=== PATIENT | male | born 1955 | race Hispanic/Latino ===

== ENCOUNTER → 2018-02-16 | Outpatient (CLI) | payer OTHER | END | disposition home or self-care (01) | LOC: RAH 10:25 | PROVIDERS: ATTEND Internal Medicine Gastroenterology | DX: R14.0 Abdominal distension (gaseous) (principal); R10.10 Upper abdominal pain, unspecified | CPT/HCPCS: 78264; A9541 ==

== ENCOUNTER 2018-06-01 05:48 | Day surgery (SDC) | payer OTHER ==
[~2018-06-01] VITALS: Ht 172.7 cm; Wt 90.8 kg
[~2018-06-01 05:48] MED LIST: ASPI-555 PO; ATOR-2 PO; CLOP75TA32 PO; FURO80TA3 PO; HYDR-4068 PO; PANT40TA25 PO; POTA25TA13 PO; SODIUM CHLORIDE 0.9% 1000ML 1,000 ML IV ONE
[2018-06-01 06:15] VITALS: BP 136/77
[2018-06-01] MEDS ORDERED: PROPOFOL 10 MG/ML 20ML VIAL IV ONE (06:15)
[2018-06-01] MEDS ORDERED: LIDOCAINE HCL-MPF 2% 5ML VIAL ONE (06:15)
[2018-06-01 06:58] VITALS: BP 108/69
[2018-06-01 07:05] VITALS: BP 114/69
[2018-06-01 07:10] VITALS: BP 114/69
== END 2018-06-01 07:20 | disposition home or self-care (01) ==
LOC: ENDO 05:48 → DAH 05:48 → ENDO 07:20
PROVIDERS: ATTEND Internal Medicine Gastroenterology
DX: K29.50 Unspecified chronic gastritis without bleeding (principal); E78.00 Pure hypercholesterolemia, unspecified; F41.9 Anxiety disorder, unspecified; M19.90 Unspecified osteoarthritis, unspecified site; Z86.010 Personal history of colon polyps; I25.10 Atherosclerotic heart disease of native coronary artery without angina pectoris; Z95.1 Presence of aortocoronary bypass graft; Z98.890 Other specified postprocedural states; Z68.32 Body mass index [BMI] 32.0-32.9, adult; Z79.899 Other long term (current) drug therapy; Z88.8 Allergy status to other drugs, medicaments and biological substances; K21.0 Gastro-esophageal reflux disease with esophagitis; B19.20 Unspecified viral hepatitis C without hepatic coma; K76.0 Fatty (change of) liver, not elsewhere classified; E78.5 Hyperlipidemia, unspecified; I45.10 Unspecified right bundle-branch block
CPT/HCPCS: 43239; 88305; 93005; J2704; J3490; J7030

== ENCOUNTER → 2018-09-08 | Outpatient (CLI) | payer OTHER ==
[~2018-09-08] MED LIST changes: -ASPI-555 PO; +DiphenhydrAMINE HCL 50 MG/ML VIAL ONE; +IOHEXOL-350 75 ML VIAL IV ONE; -SODIUM CHLORIDE 0.9% 1000ML 1,000 ML IV ONE
== END | disposition home or self-care (01) ==
LOC: RAH 08-30 09:40
PROVIDERS: ATTEND Internal Medicine Gastroenterology
DX: K40.90 Unilateral inguinal hernia, without obstruction or gangrene, not specified as recurrent (principal)
CPT/HCPCS: 74178; J1200; Q9967